=== PATIENT | female | born 1930 | race Hispanic/Latino ===

== ENCOUNTER 2018-07-18 10:13 | Observation (INO) | payer MEDICARE, OTHER ==
[~2018-07-18] VITALS: Ht 167.6 cm; Wt 70.8 kg
[~2018-07-18 10:13] MED LIST: ASPI-555 PO; FOLI1TAB82 PO; GLIP2.5T2 PO; LISI1TAB13 PO
[2018-07-18] MEDS ORDERED: HYDROCODONE/ACETAMINOPHEN 5/325 MG TAB ONE (11:13)
[2018-07-18 11:30] LABS: BASOPHILS % (AUTO) 0.6 % (0.0-5.0); EOSINOPHILS % (AUTO) 1.9 % (0.0-8.0); HEMATOCRIT 28.8 % (36-48); MEAN CORPUSCULAR HEMOGLOBIN 33.3 pg (27.0-33.0); MEAN CORPUSCULAR VOLUME 97.9 fL (79-99); MONOCYTES % (AUTO) 3.1 % (3.0-13.0); NEUTROPHILS % (AUTO) 89.4 % (40.0-77.0); PLATELET COUNT (AUTO) 215 K/uL (130-400); RED BLOOD CELL COUNT(AUTO) 2.94 MIL/uL (4.00-5.50); RED CELL DISTRIBUTION WIDTH 12.9 % (11.0-15.5); WHITE BLOOD COUNT (AUTO) 11.5 K/uL (4.8-10.8)
[2018-07-18 11:45] LABS: CREATININE 1.4 mg/dL (0.5-1.5); POTASSIUM 4.3 mmol/L (3.5-5.1)
[2018-07-18 16:40] VITALS: BP 186/64
[2018-07-18] MEDS ORDERED: MORPHINE SULFATE 2 MG/ML 1ML SYG IVP PRN (17:15)
[2018-07-18] MEDS ORDERED: GLUCAGON 1MG KIT 1 MG ML IM PRN (17:30)
[2018-07-18] MEDS ORDERED: ACETAMINOPHEN 325 MG TAB PO PRN ×2 (17:30)
[2018-07-18] MEDS ORDERED: ONDANSETRON HCL 4 MG/2 ML VIAL IVP PRN (17:30)
[2018-07-18] MEDS ORDERED: DEXTROSE 50%-WATER 50 ML DISP.SYRIN IV PRN (17:30)
[2018-07-18] MEDS: LACTATED RINGERS 1000ML 1,000 ML IV SCH (18:28)
[2018-07-18] MEDS: HYDROCODONE/ACETAMINOPHEN 5/325 MG TAB PO PRN (18:28)
[2018-07-18 20:04] VITALS: BP 147/56
[2018-07-18] MEDS: FAMOTIDINE 20MG TAB 20 MG TAB PO SCH (20:26)
[2018-07-18] MEDS: INSULIN R PO SSI SQ SCH (21:00)
[2018-07-18 23:25] VITALS: BP 150/56
[2018-07-19 04:19] VITALS: BP 151/57
[2018-07-19] MEDS: INSULIN R PO SSI SQ SCH ×4 (06:59→20:52)
[2018-07-19 07:30] VITALS: BP 156/63
[2018-07-19] MEDS: FAMOTIDINE 20MG TAB 20 MG TAB PO SCH ×2 (09:51→20:53)
[2018-07-19] MEDS: HYDROCODONE/ACETAMINOPHEN 5/325 MG TAB PO PRN (09:52)
[2018-07-19 11:00] VITALS: BP 137/54
[2018-07-19 16:00] VITALS: BP 159/59
[2018-07-19 19:46] VITALS: BP 149/58
[2018-07-19] MEDS: LACTATED RINGERS 1000ML 1,000 ML IV SCH (20:59)
[2018-07-19 23:29] VITALS: BP 142/48
[2018-07-20 03:42] VITALS: BP 154/57
[2018-07-20] MEDS: INSULIN R PO SSI SQ SCH ×3 (06:46→16:09)
[2018-07-20] MEDS ORDERED: GLIPIZIDE XL 2.5MG TAB PO SCH (08:00)
[2018-07-20 08:02] VITALS: BP 176/64
[2018-07-20] MEDS: FAMOTIDINE 20MG TAB 20 MG TAB PO SCH (08:28)
[2018-07-20] MEDS ORDERED: HYDROCHLOROTHIAZIDE 25 MG TABLET PO SCH (09:00)
[2018-07-20] MEDS ORDERED: LISINOPRIL 20 MG TABLET PO SCH (09:00)
[2018-07-20] MEDS ORDERED: FOLIC ACID/VITAMIN B COMP W-C 1 MG CAPSULE PO SCH (09:00)
[2018-07-20] MEDS: LACTATED RINGERS 1000ML 1,000 ML IV SCH (09:15)
[2018-07-20] MEDS: HYDROCODONE/ACETAMINOPHEN 5/325 MG TAB PO PRN (10:16)
[2018-07-20 11:42] VITALS: BP 165/76
[2018-07-20 16:19] VITALS: BP 145/67
[2018-07-20] MEDS ORDERED: ASPIRIN 81MG TAB.CHEW PO SCH (21:00)
== END 2018-07-20 18:15 ==
LOC: EDH 10:13 → 4BH 15:11
PROVIDERS: ADMIT Internal Medicine Critical Care Medicine; ATTEND Internal Medicine Critical Care Medicine
DX: S62.101A Fracture of unspecified carpal bone, right wrist, initial encounter for closed fracture (principal); R55 Syncope and collapse; E11.9 Type 2 diabetes mellitus without complications; E78.5 Hyperlipidemia, unspecified; I10 Essential (primary) hypertension; W19.XXXA Unspecified fall, initial encounter; Y92.009 Unspecified place in unspecified non-institutional (private) residence as the place of occurrence of the external cause; Y93.89 Activity, other specified; Y99.8 Other external cause status
CPT/HCPCS: 36415; 73110; 80048; 82948 ×9; 84484; 85025; 93005; 96360; 96361 ×3; 97039 ×3; 97161; 99284; G0378 ×51; G8979; G8980; G8981; G8982; G8983; J7120 ×3